=== PATIENT | female | born 1955 | race Caucasian/White ===

== ENCOUNTER 2022-12-25 14:59 | Emergency (ER) | payer OTHER ==
[~2022-12-25] VITALS: Ht 165.1 cm; Wt 68.0 kg
[2022-12-25 15:06] VITALS: BP 197/69; PULSE 86; RESP 18; O2SAT 97
[2022-12-25 15:15] VITALS: TEMP 98.4
[2022-12-25] MEDS ORDERED: ACETAMINOPHEN 325MG TABLET PO ONE (15:15)
[2022-12-25] MEDS ORDERED: IBUP-2029 MT (18:33)
[2022-12-25] MEDS ORDERED: CYCL5TAB MT (18:33)
== END 2022-12-25 21:45 | disposition home or self-care (01) ==
LOC: ER 14:59
DX: S09.90XA Unspecified injury of head, initial encounter (principal); Y09 Assault by unspecified means; Y93.89 Activity, other specified; Y92.89 Other specified places as the place of occurrence of the external cause; Y99.8 Other external cause status
CPT/HCPCS: 72100; 73130; 73590; 99284

== ENCOUNTER 2025-02-11 13:27 | Emergency (ER) | payer OTHER ==
[~2025-02-11] VITALS: Ht 152.4 cm; Wt 74.0 kg
[~2025-02-11 13:27] MED LIST: CYCL5TAB3 MT; IBUP-2029 MT
[2025-02-11 13:42] VITALS: O2SAT 97
[2025-02-11 14:31] LABS: CLARITY URINE CLOUDY (CLEAR); COLOR URINE YELLOW (YELLOW); GLUCOSE URINE 2+ (NEGATIVE); KETONES URINE NEGATIVE (NEGATIVE); LEUKOCYTE ESTERASE URINE 2+ (NEGATIVE); NITRITE URINE POSITIVE (NEGATIVE); OCCULT BLOOD URINE 1+ (NEGATIVE); PH URINE 5.5 (4.5-8.0); PROTEIN URINE NEGATIVE (NEGATIVE); SPECIFIC GRAVITY URINE 1.021 (1.005-1.030); UROBILINOGEN URINE 1.0 E.U./dL (0.2-1.0)
[2025-02-11 14:40] LABS: SQUAMOUS EPITHELIAL CELL URINE 1+ /lpf (RARE/1+); WBC URINE TNTC /hpf (0-2)
[2025-02-11 14:41] LABS: BACTERIA URINE 4+; RBC URINE 0-2 /hpf (0-2)
[2025-02-11] MEDS ORDERED: CEFP200T13 MT (15:39)
[2025-02-11] MEDS: CEFTRIAXONE SODIUM 1G VIAL IM ONE (15:50)
[2025-02-11] MEDS: LIDOCAINE HCL 1% 20ML VIAL INFIL ONE (15:51)
[2025-02-11 16:04] VITALS: BP 171/58; PULSE 62; RESP 16; TEMP 36.6; O2SAT 100
== END 2025-02-11 16:08 | disposition home or self-care (01) ==
LOC: ER 13:27
DX: N30.00 Acute cystitis without hematuria (principal); Z79.899 Other long term (current) drug therapy
CPT/HCPCS: 99283; 81003; 81025; 87086; 87186; 87077; 96372; J0696; J2003